=== PATIENT | male | born 1960 | race Caucasian/White ===

== ENCOUNTER → 2019-07-15 | Day surgery (SDC) | payer OTHER ==
[~2019-07-15] MED LIST: Lactated Ringers 1,000 ML IV SCH; Propofol 200 MG/20 ML SDV IV ONE
--- NOTE | 2019-07-18 07:17 | OR ---
DATE OF OPERATION: 07/15/2019 PREOPERATIVE DIAGNOSIS: EPIGASTRIC PAIN. POSTOPERATIVE DIAGNOSIS: 1. PEPTIC ULCER DISEASE. 2. REFLUX ESOPHAGITIS. SURGEON: Ferny Gonzales MD PROCEDURE: ESOPHAGOGASTRODUODENOSCOPY WITH BIOPSIES X5, MARTHA. ANESTHESIA: MAC via RESIN COATER. COMPLICATIONS: None. SPECIMEN: 1. Duodenal bulb biopsy x1. 2. Antral biopsy x2. 3. Distal esophageal biopsy x2. 4. Antral MARTHA. FINDINGS: 1. Full-length EGD. 2. Duodenitis, duodenal bulb without ulceration. 3. Diffuse antral gastritis with multiple shallow ulcers. 4. Reflux esophagitis, grade 1. RECOMMENDATIONS: The patient will be placed on proton pump therapy. He needs to avoid NSAIDs which he takes daily and have close followup with Dr. Preciado. INDICATIONS: The patient has been having some ongoing issues with epigastric pain. Dr. Preciado sent him for diagnostic EGD. DESCRIPTION OF PROCEDURE: The patient was prepped and draped, placed in left lateral decubitus position. A lubricated Olympus gastroscope was inserted over a bit, advanced to cricopharyngeus area, and easily intubated into the esophagus. The esophageal lining was benign until its most distal portion. From about 37 to 40 cm, the patient had reflux esophagitis with some linear erosions. No lida ulcerations or bleeding. Two biopsies were taken of the affected site. The scope was advanced into the stomach, through the pylorus, and into the second portion of duodenum. The duodenal bulb itself had diffuse duodenitis without erosion or ulceration and biopsy was taken. The scope was brought back into the stomach and retroflexed. The upper fundus and cardia appeared unremarkable, but the most distal aspect of the fundus and the entire antrum showed signs of peptic ulcer disease. The patient had countless small ulcerations in the antrum extending all the way up into the pyloric channel, more erosions than ulcerations, and no active bleeding. Two technical service representative biopsies were taken along with the MARTHA. Air was then suctioned from the stomach. The scope removed without complication. BRITTNY/AVELINA /[id number] CC: Dr. Preciado
== END ==
LOC: CC.SDS 08:34
PROVIDERS: ATTEND Family Medicine
DX: K21.0 Gastro-esophageal reflux disease with esophagitis (principal); K25.9 Gastric ulcer, unspecified as acute or chronic, without hemorrhage or perforation; K29.80 Duodenitis without bleeding; K31.89 Other diseases of stomach and duodenum; K22.8 Other specified diseases of esophagus; I10 Essential (primary) hypertension; E55.9 Vitamin D deficiency, unspecified; E78.5 Hyperlipidemia, unspecified; F17.200 Nicotine dependence, unspecified, uncomplicated; M19.90 Unspecified osteoarthritis, unspecified site; N40.1 Benign prostatic hyperplasia with lower urinary tract symptoms; R35.1 Nocturia; Z79.82 Long term (current) use of aspirin; Z79.1 Long term (current) use of non-steroidal anti-inflammatories (NSAID); Z79.899 Other long term (current) drug therapy
CPT/HCPCS: 43239; 87081; J2704; J7120